=== PATIENT | female | born 1950 | race Caucasian/White ===

== ENCOUNTER 2017-08-13 14:56 | Emergency (ER) | payer MEDICARE, MEDICAID ==
[~2017-08-13] VITALS: Ht 165.1 cm; Wt 83.0 kg
[2017-08-13 15:03] VITALS: BP 149/73
== END 2017-08-13 16:44 | disposition home or self-care (01) ==
LOC: ER 14:58
DX: S90.122A Contusion of left lesser toe(s) without damage to nail, initial encounter (principal); I10 Essential (primary) hypertension; Z88.0 Allergy status to penicillin; Z98.890 Other specified postprocedural states; W20.8XXA Other cause of strike by thrown, projected or falling object, initial encounter; Y93.89 Activity, other specified; Y92.89 Other specified places as the place of occurrence of the external cause; Y99.8 Other external cause status
CPT/HCPCS: 73630; 99284; A4606; Z7610

== ENCOUNTER 2017-09-20 22:36 | Emergency (ER) | payer MEDICARE, MEDICAID ==
[~2017-09-20] VITALS: Ht 154.9 cm; Wt 78.9 kg
--- NOTE | 2017-09-20 23:00 | NUR ---
to bed 11 ambulatory c/o nose bleed x4 days. nose clamp applied. will continue to monitor pt closely. pending er md reyes.
[2017-09-20] MEDS ORDERED: PHENYLEPHRINE HCL NASAL SPRAY 15 ML BOTTLE NS ONE (23:30)
[2017-09-20] MEDS ORDERED: PHENYLEPHRINE 0.5% NASAL SPRAY 15 ML BOTTLE NS ONE (23:32)
[2017-09-20] MEDS ORDERED: CLONIDINE HCL 0.1 MG TABLET ONE (23:33)
[2017-09-20] MEDS ORDERED: ALPRAZOLAM 0.25 MG TABLET ONE (23:33)
[2017-09-20] MEDS: ALPRAZOLAM 0.25 MG TABLET PO ONE (23:37)
[2017-09-20] MEDS: CLONIDINE HCL 0.1 MG TABLET PO ONE (23:37)
[2017-09-20] MEDS: PHENYLEPHRINE 0.5% NASAL SPRAY 15 ML BOTTLE NS ONE (23:37)
--- NOTE | 2017-09-21 01:36 | NUR ---
Patient discharged to home in stable condition. Written and verbal after care instructions given. Patient verbalizes understanding of instruction. ambulatory with a steady gait
[2017-09-21 01:37] VITALS: BP 133/83
== END 2017-09-21 01:39 | disposition home or self-care (01) ==
LOC: ER 22:38
DX: R04.0 Epistaxis (principal); I10 Essential (primary) hypertension; Z88.0 Allergy status to penicillin
CPT/HCPCS: A4606; Z7610